=== PATIENT | male | born 1975 | race African-American/Black ===

== ENCOUNTER 2024-04-19 10:03 | Inpatient (IN) | payer OTHER ==
[2024-04-19] MEDS ORDERED: morphine SULFATE 4 MG/ML VIAL ONE ×3 (10:50→16:47)
[2024-04-19] MEDS ORDERED: ONDANSETRON 4 MG/2 ML VIAL ONE (10:50)
[2024-04-19 10:54] LABS: BASO % 0.3 % (0-2.0); HEMATOCRIT 35.9 % (35.4-49); HEMOGLOBIN 11.9 GM/dL (11.7-16.9); LYMPH % 11.1 % (8-40); MCH 29.8 pg (25.7-33.7); MCHC 33.2 g/dl (32.0-35.9); MEAN CELL VOLUME 89.8 fl (80-96); MEAN PLT VOLUME 7.7 fl (7.5-11.1); NEUT % 85.6 % (42.8-82.8); PLATELET COUNT 283 10^3/uL (134-434); RDW 15.9 % (11.9-15.9); WHITE BLOOD COUNT 6.6 K/mm3 (4.0-10.0)
[2024-04-19] MEDS: morphine CARPU-JECT 4 MG/1 ML DISP.SYRIN IVPUSH ONE ×2 (10:58→16:56)
[2024-04-19] MEDS: ONDANSETRON 4 MG/2 ML VIAL IVPUSH ONE (10:58)
[2024-04-19 11:13] LABS: CHLORIDE 103 mmol/L (98-107); SODIUM 126 mmol/L (136-145)
[2024-04-19 11:16] LABS: ALBUMIN 3.5 g/dl (3.4-5.0); BLOOD UREA NITROGEN 10.6 mg/dL (7-18); CALCIUM 8.7 mg/dL (8.5-10.1); CO2 27 mmol/L (21-32); GLUCOSE,RANDOM 124 mg/dL (74-106); MAGNESIUM 2.2 mg/dL (1.8-2.4)
[2024-04-19 11:19] LABS: CREATININE 1.1 mg/dL (0.55-1.3); PHOSPHOROUS 3.4 mg/dL (2.5-4.9)
[2024-04-19 11:21] LABS: TOT PROT 8.7 g/dl (6.4-8.2)
[2024-04-19 11:22] LABS: ALK PHOS 66 U/L (45-117)
[2024-04-19 11:30] LABS: ANION GAP -4 mmol/L (4-13); POTASSIUM > 10.0 mmol/L (3.5-5.1); SGOT/AST 139 U/L (15-37); SGPT/ALT 39 U/L (13-61)
[2024-04-19] MEDS: morphine CARPU-JECT 8 MG/1 ML DISP.SYRIN IVPUSH ONE (12:02)
[2024-04-19 12:19] LABS: ACTIVATED PTT 36.7 SECONDS (25.2-36.5); INR 0.96 (0.83-1.09)
[2024-04-19 12:31] LABS: CHLORIDE 107 mmol/L (98-107); POTASSIUM 4.8 mmol/L (3.5-5.1); SODIUM 140 mmol/L (136-145)
[2024-04-19 12:34] LABS: ALBUMIN 3.7 g/dl (3.4-5.0); ANION GAP 7 mmol/L (4-13); BLOOD UREA NITROGEN 10.2 mg/dL (7-18); CALCIUM 9.4 mg/dL (8.5-10.1); CO2 26 mmol/L (21-32); GLUCOSE,RANDOM 119 mg/dL (74-106)
[2024-04-19 12:37] LABS: SGPT/ALT 25 U/L (13-61)
[2024-04-19 12:38] LABS: SGOT/AST 28 U/L (15-37)
[2024-04-19 12:39] LABS: BILIRUBIN,TOTAL 0.5 mg/dL (0.2-1); TOT PROT 7.6 g/dl (6.4-8.2)
[2024-04-19 12:40] LABS: ALK PHOS 68 U/L (45-117)
[2024-04-19] MEDS ORDERED: ACETAMINOPHEN INJECTION 100 ML IVPB ONE (13:08)
[2024-04-19] MEDS: ACETAMINOPHEN 1000 MG/100 ML BAG IVPB ONE (13:15)
[2024-04-19] MEDS ORDERED: MORPHINE SULFATE 2 MG/ML SYRINGE ONE (16:47)
[2024-04-19] MEDS ORDERED: ACETAMINOPHEN 1000 MG/100 ML BAG IVPB PRN (18:03)
[2024-04-19] MEDS ORDERED: morphine SULFATE 4 MG/ML VIAL IVPUSH PRN (18:03)
[2024-04-19] MEDS ORDERED: ONDANSETRON 4 MG/2 ML VIAL IVPUSH PRN (19:49)
[2024-04-19 20:17] VITALS: RESP 18; BMI 44.1
[2024-04-19] MEDS: DEXTROSE 5%-0.45% SALINE 1,000 ML IV SCH (20:30)
[2024-04-20 08:21] LABS: POTASSIUM 3.5 mmol/L (3.5-5.1)
[2024-04-20 08:27] LABS: BASO % 0.4 % (0-2.0); EOS % 0.4 % (0-4.5); HEMATOCRIT 33.9 % (35.4-49); HEMOGLOBIN 11.6 GM/dL (11.7-16.9); LYMPH % 22.6 % (8-40); MCH 30.4 pg (25.7-33.7); MEAN CELL VOLUME 89.3 fl (80-96); MEAN PLT VOLUME 7.2 fl (7.5-11.1); NEUT % 66.6 % (42.8-82.8); PLATELET COUNT 240 10^3/uL (134-434); RDW 14.7 % (11.9-15.9); WHITE BLOOD COUNT 5.8 K/mm3 (4.0-10.0)
[2024-04-20 08:31] LABS: CALCIUM 8.7 mg/dL (8.5-10.1)
[2024-04-20 08:32] LABS: ALBUMIN 3.2 g/dl (3.4-5.0); BLOOD UREA NITROGEN 8.5 mg/dL (7-18)
[2024-04-20 08:35] LABS: CREATININE 0.9 mg/dL (0.55-1.3)
[2024-04-20 08:36] LABS: TOT PROT 6.9 g/dl (6.4-8.2)
[2024-04-20 08:44] LABS: MAGNESIUM 1.8 mg/dL (1.8-2.4)
[2024-04-20] MEDS: LEVOTHYROXINE SODIUM 100 MCG 5 ML VIAL IVPUSH SCH (09:16)
[2024-04-20 11:31] VITALS: BP 140/66; PULSE 84; TEMP 98
== END 2024-04-20 14:24 | disposition home or self-care (01) | DRG 254 ==
LOC: JER 10:03 → JERBED 17:15 → J8W 19:28
PROVIDERS: ADMIT Internal Medicine; ATTEND Internal Medicine
DX: K43.9 Ventral hernia without obstruction or gangrene (principal); E03.9 Hypothyroidism, unspecified
CPT/HCPCS: 36415; 74018-TC-FY; 74177-TC; 80053; 82550; 82553; 83690; 83735; 84100; 84439; 84443; 84484; 85025; 85610; 85730; 86850; 86900; 86901; 93005; 93010; 99285-25; J0131; Q9967

== ENCOUNTER 2024-04-21 10:07 | Inpatient (IN) | payer OTHER ==
[2024-04-21] MEDS ORDERED: ACETAMINOPHEN INJECTION 100 ML IVPB ONE (11:07)
[2024-04-21] MEDS ORDERED: morphine SULFATE 4 MG/ML VIAL ONE ×2 (11:07→20:50)
[2024-04-21] MEDS ORDERED: FAMOTIDINE 20 MG/50 ML IVPB 20 MG/50 ML MG IVPB ONE (11:08)
[2024-04-21] MEDS ORDERED: ONDANSETRON 4 MG/2 ML VIAL ONE (11:08)
[2024-04-21 11:09] LABS: BASO % 0.3 % (0-2.0); EOS % 0.1 % (0-4.5); HEMATOCRIT 36.9 % (35.4-49); HEMOGLOBIN 12.2 GM/dL (11.7-16.9); LYMPH % 7.8 % (8-40); MCH 29.5 pg (25.7-33.7); MEAN CELL VOLUME 89.3 fl (80-96); MEAN PLT VOLUME 7.3 fl (7.5-11.1); MONO % 5.5 % (3.8-10.2); NEUT % 86.3 % (42.8-82.8); PLATELET COUNT 248 10^3/uL (134-434); RBC 4.13 M/mm3 (4.00-5.60); RDW 14.5 % (11.9-15.9); WHITE BLOOD COUNT 11.3 K/mm3 (4.0-10.0)
[2024-04-21 11:19] LABS: INR 1.12 (0.83-1.09); PROTHROMBIN TIME (PATIENT) 12.8 SEC (9.7-13.0)
[2024-04-21] MEDS: ACETAMINOPHEN 1000 MG/100 ML BAG IVPB ONE (11:19)
[2024-04-21] MEDS: morphine CARPU-JECT 4 MG/1 ML DISP.SYRIN IVPUSH ONE ×2 (11:20→20:56)
[2024-04-21] MEDS: FAMOTIDINE 20 MG/50 ML IVPB 20 MG/50 ML MG IVPB SCH (11:20)
[2024-04-21] MEDS: ONDANSETRON 4 MG/2 ML VIAL IVPUSH ONE (11:20)
[2024-04-21] MEDS: SODIUM CHLORIDE 0.9% 500 ML INFUS.BAG IV ONE (11:20)
[2024-04-21] MEDS ORDERED: HYDROmorphone HCL CARPU-JECT 2 MG/1 ML DISP.SYRIN ONE (11:22)
[2024-04-21] MEDS: HYDROmorphone HCl 2 MG/ML VIAL IVPUSH ONE (11:29)
[2024-04-21 11:49] LABS: POTASSIUM 4.2 mmol/L (3.5-5.1)
[2024-04-21 11:52] LABS: ALBUMIN 3.6 g/dl (3.4-5.0); BLOOD UREA NITROGEN 9.1 mg/dL (7-18); CALCIUM 8.9 mg/dL (8.5-10.1)
[2024-04-21 11:55] LABS: CREATININE 1.1 mg/dL (0.55-1.3)
[2024-04-21 11:57] LABS: TOT PROT 7.4 g/dl (6.4-8.2)
[2024-04-21 12:13] LABS: MAGNESIUM 1.9 mg/dL (1.8-2.4)
[2024-04-21 13:18] LABS: PH,URINE 5.5 (5.0-8.0); URINE APPEARANCE CLEAR; URINE BILIRUBIN NEGATIVE (NEGATIVE); URINE COLOR YELLOW; URINE GLUCOSE (UA) NEGATIVE (NEGATIVE); URINE KETONE 2+ (NEGATIVE); URINE LEUK ESTERASE NEGATIVE (NEGATIVE); URINE NITRITE NEGATIVE (NEGATIVE); URINE PROTEIN NEGATIVE (NEGATIVE)
[2024-04-21] MEDS ORDERED: KETOROLAC TROMETHAMINE 15 MG/ML VIAL ONE (14:45)
[2024-04-21] MEDS: KETOROLAC TROMETHAMINE 15 MG/ML VIAL IVPUSH ONE (14:53)
[2024-04-21] MEDS ORDERED: ONDANSETRON 4 MG/2 ML VIAL IVPUSH PRN (21:54)
[2024-04-22] MEDS: ceFAZolin SODIUM 1 GM VIAL IVPB ONE
[2024-04-22] MEDS: DEXTROSE 5%-0.45% SALINE 1,000 ML IV SCH ×2 (01:33→22:20)
[2024-04-22] MEDS: ACETAMINOPHEN 1000 MG/100 ML BAG IVPB PRN (01:34)
[2024-04-22 03:07] VITALS: BMI 42.8
[2024-04-22] MEDS: PIPERACILLIN/TAZOB 3.375 GM 3.375 GM in DEXTROSE 5%-WATER - 50 ML IVPB SCH ×2 (03:07→11:54)
[2024-04-22 07:58] LABS: BASO % 0.2 % (0-2.0); HEMATOCRIT 34.3 % (35.4-49); HEMOGLOBIN 11.4 GM/dL (11.7-16.9); LYMPH % 7.7 % (8-40); MCH 29.6 pg (25.7-33.7); MCHC 33.1 g/dl (32.0-35.9); MEAN CELL VOLUME 89.2 fl (80-96); MEAN PLT VOLUME 7.6 fl (7.5-11.1); MONO % 9.6 % (3.8-10.2); NEUT % 82.5 % (42.8-82.8); PLATELET COUNT 236 10^3/uL (134-434); RBC 3.85 M/mm3 (4.00-5.60); RDW 14.5 % (11.9-15.9); WHITE BLOOD COUNT 12.1 K/mm3 (4.0-10.0)
[2024-04-22 08:06] LABS: POTASSIUM 3.8 mmol/L (3.5-5.1)
[2024-04-22 08:13] LABS: CALCIUM 8.1 mg/dL (8.5-10.1)
[2024-04-22 08:14] LABS: BLOOD UREA NITROGEN 9.2 mg/dL (7-18)
[2024-04-22 08:17] LABS: CREATININE 1.1 mg/dL (0.55-1.3)
[2024-04-22] MEDS ORDERED: BUPIVACAINE HCL/PF 0.25% (2.5MG/ML) 10 ML VIAL ONE (11:03)
[2024-04-22] MEDS ORDERED: HEPARIN NA (PORCINE) 5,000 UNITS/ML 1ML VIAL ONE (11:04)
[2024-04-22] MEDS: LEVOTHYROXINE SODIUM 100 MCG 5 ML VIAL IVPUSH SCH (11:54)
[2024-04-22] MEDS ORDERED: PROPOFOL 20 ML ONE ×2 (13:31→19:57)
[2024-04-22] MEDS ORDERED: MIDAZOLAM HCL 2 MG/2 ML SINGLE DOSE VIAL ONE (13:32)
[2024-04-22] MEDS ORDERED: SUCCINYLCHOLINE CHLORIDE 200 MG/10 ML SYRINGE ONE ×2 (13:32→20:06)
[2024-04-22] MEDS ORDERED: ROCURONIUM BROMIDE 50 MG/5 ML SYRINGE ONE (13:58)
[2024-04-22] MEDS ORDERED: DEXAMETHASONE SOD PHOSPHATE 4 MG/1 ML VIAL ONE (14:01)
[2024-04-22] MEDS ORDERED: ONDANSETRON 4 MG/2 ML VIAL ONE (14:01)
[2024-04-22] MEDS ORDERED: ACETAMINOPHEN INJECTION 100 ML IVPB ONE ×2 (14:07→21:02)
[2024-04-22] MEDS: BUPIVACAINE HCL/PF 0.25% (2.5MG/ML) 10 ML VIAL IJ ONE ×2 (14:14)
[2024-04-22] MEDS ORDERED: INDOCYANINE GREEN 25 MG/10 ML VIAL IVPUSH ONE (14:41)
[2024-04-22] MEDS ORDERED: ROCURONIUM BROMIDE 50 MG/5 ML VIAL ONE ×3 (15:03→19:43)
[2024-04-22] MEDS ORDERED: DEXTROSE 50%-WATER 25 GM/50 ML DISP.SYRIN ONE (16:06)
[2024-04-22] MEDS ORDERED: DEXMEDETOMIDINE HCL 200 MCG/2 ML IVPB ONE (16:11)
[2024-04-22] MEDS ORDERED: SUGAMMADEX SODIUM 200 MG/2 ML VIAL ONE ×2 (16:55→20:00)
[2024-04-22] MEDS ORDERED: KETOROLAC TROMETHAMINE 30 MG/1 ML VIAL ONE (18:45)
[2024-04-22] MEDS ORDERED: ONDANSETRON 4 MG/2 ML VIAL IVPUSH PRN ×2 (20:45→20:49)
[2024-04-22] MEDS: ACETAMINOPHEN 1000 MG/100 ML BAG IVPB ONE ×2 (21:00→22:37)
[2024-04-22] MEDS ORDERED: HYDROmorphone HCL CARPU-JECT 2 MG/1 ML DISP.SYRIN ONE (21:48)
[2024-04-22] MEDS: HYDROmorphone HCl 2 MG/ML VIAL IVPB PRN (21:55)
[2024-04-22] MEDS: FAMOTIDINE 20 MG/50 ML IVPB 20 MG/50 ML MG IVPB SCH (23:24)
[2024-04-23] MEDS: PIPERACILLIN/TAZOB 3.375 GM 3.375 GM in DEXTROSE 5%-WATER - 50 ML IVPB SCH ×2 (00:15→01:31)
[2024-04-23] MEDS: LACTATED RINGERS SOLUTION 1,000 ML IV SCH (00:15)
[2024-04-23] MEDS: oxyCODONE HCL 5 MG TABLET PO PRN (02:02)
[2024-04-23 09:44] LABS: BASO % 0.1 % (0-2.0); HEMATOCRIT 34.1 % (35.4-49); HEMOGLOBIN 11.1 GM/dL (11.7-16.9); LYMPH % 6.4 % (8-40); MCH 29.5 pg (25.7-33.7); MCHC 32.4 g/dl (32.0-35.9); MEAN PLT VOLUME 7.5 fl (7.5-11.1); MONO % 7.3 % (3.8-10.2); NEUT % 86.2 % (42.8-82.8); PLATELET COUNT 257 10^3/uL (134-434); RBC 3.75 M/mm3 (4.00-5.60); RDW 14.5 % (11.9-15.9); WHITE BLOOD COUNT 13.6 K/mm3 (4.0-10.0)
[2024-04-23 10:05] LABS: POTASSIUM 3.6 mmol/L (3.5-5.1)
[2024-04-23 10:08] LABS: BLOOD UREA NITROGEN 8.6 mg/dL (7-18); CALCIUM 8.3 mg/dL (8.5-10.1)
[2024-04-23 10:12] LABS: CREATININE 1.3 mg/dL (0.55-1.3)
[2024-04-23] MEDS: LEVOTHYROXINE SODIUM 100 MCG 5 ML VIAL IVPUSH SCH (10:12)
[2024-04-23 10:13] LABS: BILIRUBIN,TOTAL 0.9 mg/dL (0.2-1)
[2024-04-23] MEDS ORDERED: KETOROLAC TROMETHAMINE 15 MG/ML VIAL IVPUSH PRN (12:45)
[2024-04-23] MEDS: KETOROLAC TROMETHAMINE 15 MG/ML VIAL IVPUSH SCH (13:59)
[2024-04-23 15:39] VITALS: RESP 18
[2024-04-23] MEDS: ACETAMINOPHEN 325 MG TABLET (FP) PO SCH (22:23)
[2024-04-24] MEDS: LEVOTHYROXINE NA 150 MCG TABLET PO SCH (07:05)
[2024-04-24 09:19] LABS: BASO % 0.1 % (0-2.0); EOS % 0.7 % (0-4.5); HEMATOCRIT 31.2 % (35.4-49); HEMOGLOBIN 10.5 GM/dL (11.7-16.9); LYMPH % 13.9 % (8-40); MCH 29.7 pg (25.7-33.7); MCHC 33.6 g/dl (32.0-35.9); MEAN CELL VOLUME 88.4 fl (80-96); MEAN PLT VOLUME 7.9 fl (7.5-11.1); MONO % 8.9 % (3.8-10.2); NEUT % 76.4 % (42.8-82.8); PLATELET COUNT 232 10^3/uL (134-434); RBC 3.53 M/mm3 (4.00-5.60); RDW 14.5 % (11.9-15.9); WHITE BLOOD COUNT 7.8 K/mm3 (4.0-10.0)
[2024-04-24 09:30] LABS: POTASSIUM 3.6 mmol/L (3.5-5.1)
[2024-04-24 09:34] LABS: CALCIUM 7.5 mg/dL (8.5-10.1)
[2024-04-24 09:35] LABS: BLOOD UREA NITROGEN 5.6 mg/dL (7-18)
[2024-04-24 09:37] LABS: CREATININE 0.9 mg/dL (0.55-1.3)
[2024-04-24 09:39] LABS: BILIRUBIN,TOTAL 0.5 mg/dL (0.2-1); TOT PROT 6.2 g/dl (6.4-8.2)
[2024-04-24 09:51] LABS: ALBUMIN 2.4 g/dl (3.4-5.0)
[2024-04-25 07:58] LABS: BASO % 0.4 % (0-2.0); EOS % 1.3 % (0-4.5); HEMATOCRIT 30.1 % (35.4-49); HEMOGLOBIN 9.9 GM/dL (11.7-16.9); LYMPH % 21.2 % (8-40); MCH 29.3 pg (25.7-33.7); MCHC 32.9 g/dl (32.0-35.9); MEAN CELL VOLUME 88.9 fl (80-96); MEAN PLT VOLUME 7.3 fl (7.5-11.1); MONO % 9.9 % (3.8-10.2); NEUT % 67.2 % (42.8-82.8); PLATELET COUNT 253 10^3/uL (134-434); RBC 3.38 M/mm3 (4.00-5.60); RDW 14.8 % (11.9-15.9); WHITE BLOOD COUNT 6.3 K/mm3 (4.0-10.0)
[2024-04-25 08:13] LABS: POTASSIUM 3.5 mmol/L (3.5-5.1)
[2024-04-25 08:22] LABS: ALBUMIN 2.3 g/dl (3.4-5.0); BLOOD UREA NITROGEN 3.4 mg/dL (7-18)
[2024-04-25 08:25] LABS: CREATININE 0.8 mg/dL (0.55-1.3)
[2024-04-25 08:27] LABS: BILIRUBIN,TOTAL 0.6 mg/dL (0.2-1); TOT PROT 5.8 g/dl (6.4-8.2)
[2024-04-25] MEDS: ENOXAPARIN NA (PORCINE) 40 MG/0.4 ML DISP.SYRIN SQ SCH (09:59)
[2024-04-25 12:26] VITALS: BP 144/85; PULSE 92; TEMP 98.3
== END 2024-04-25 14:00 | disposition home or self-care (01) | DRG 227 ==
LOC: JER 10:07 → JERBED 20:22 → J8W 04-22
PROVIDERS: ADMIT Internal Medicine; ATTEND Nurse Practitioner Family
PROC: 8E0W4CZ Robotic Assisted Procedure of Trunk Region, Percutaneous Endoscopic Approach (ICD-10-PCS; 2024-04-22)
PROC: 0WQF4ZZ Repair Abdominal Wall, Percutaneous Endoscopic Approach (ICD-10-PCS; 2024-04-22)
PROC: 0W9G40Z Drainage of Peritoneal Cavity with Drainage Device, Percutaneous Endoscopic Approach (ICD-10-PCS; 2024-04-22)
PROC: 0FT44ZZ Resection of Gallbladder, Percutaneous Endoscopic Approach (ICD-10-PCS; principal; 2024-04-22 10:30)
DX: K43.0 Incisional hernia with obstruction, without gangrene (principal); K56.600 Partial intestinal obstruction, unspecified as to cause; E89.0 Postprocedural hypothyroidism; K81.0 Acute cholecystitis; K82.A1 Gangrene of gallbladder in cholecystitis; K56.51 Intestinal adhesions [bands], with partial obstruction; K65.4 Sclerosing mesenteritis; K65.1 Peritoneal abscess; E66.01 Morbid (severe) obesity due to excess calories; Z68.41 Body mass index [BMI] 40.0-44.9, adult
CPT/HCPCS: 0241U-QW; 36415; 71045-TC-FY; 74018-TC-FY; 74177-TC; 78226-TC; 80048; 80053; 81003; 83605; 83735; 84443; 84484; 85025; 85610; 85730; 86850; 86900; 86901; 87040; 87086; 88304-TC; 93005; 93010; 94760; 99285-25; A9537; J0131; J1644; Q9967

== ENCOUNTER 2024-06-06 08:20 | Inpatient (IN) | payer OTHER ==
[2024-06-06 08:35] VITALS: BMI 41.3
[2024-06-06] MEDS ORDERED: ACETAMINOPHEN INJECTION 100 ML IVPB ONE (09:21)
[2024-06-06] MEDS ORDERED: PIPERACILLIN/TAZOB 4.5 GM 4.5 GM/100 ML BAG IVPB ONE (09:21)
[2024-06-06] MEDS: ACETAMINOPHEN 1000 MG/100 ML BAG IVPB ONE (10:21)
[2024-06-06] MEDS: PIPERACILLIN/TAZOB 4.5 GM 4.5 GM in DEXTROSE 5%-WATER 100 ML IVPB ONE (10:21)
[2024-06-06 10:27] LABS: BASO % 0.7 % (0-2.0); EOS % 0.5 % (0-4.5); HEMATOCRIT 33.3 % (35.4-49); LYMPH % 18.4 % (8-40); MCH 27.4 pg (25.7-33.7); MCHC 32.9 g/dl (32.0-35.9); MEAN CELL VOLUME 83.4 fl (80-96); MEAN PLT VOLUME 6.7 fl (7.5-11.1); MONO % 8.6 % (3.8-10.2); NEUT % 71.8 % (42.8-82.8); PLATELET COUNT 342 10^3/uL (134-434); RDW 18.7 % (11.9-15.9); WHITE BLOOD COUNT 8.1 K/mm3 (4.0-10.0)
[2024-06-06 10:32] LABS: INR 1.19 (0.83-1.09); PROTHROMBIN TIME (PATIENT) 13.4 SEC (9.7-13.0)
[2024-06-06 10:49] LABS: POTASSIUM 4.5 mmol/L (3.5-5.1)
[2024-06-06 10:51] LABS: BLOOD UREA NITROGEN 5.7 mg/dL (7-18); CALCIUM 9.2 mg/dL (8.5-10.1)
[2024-06-06 10:54] LABS: CREATININE 0.9 mg/dL (0.55-1.3)
[2024-06-06 10:56] LABS: BILIRUBIN,TOTAL 0.5 mg/dL (0.2-1)
[2024-06-06] MEDS ORDERED: LIDOCAINE 1%/EPI 1:100000 (20 ML MULTI DOSE VIAL) ONE (15:01)
[2024-06-06] MEDS: LIDOCAINE HCL 1% EPINEPHRINE 1:200,000 30 ML VIAL (PF) IJ ONE (15:13)
[2024-06-06] MEDS ORDERED: HYDROmorphone HCL CARPU-JECT 2 MG/1 ML DISP.SYRIN ONE (15:48)
[2024-06-06] MEDS: HYDROmorphone HCL CARPU-JECT 2 MG/1 ML DISP.SYRIN IVPUSH ONE (16:03)
[2024-06-06] MEDS: ACETAMINOPHEN 325 MG TABLET (FP) PO SCH (18:07)
[2024-06-07] MEDS: PIPERACILLIN/TAZOB 3.375 GM 3.375 GM in DEXTROSE 5%-WATER - 50 ML IVPB SCH ×2 (01:03→17:36)
[2024-06-07] MEDS: LEVOTHYROXINE 100 MCG, LEVOTHYROXINE 75 MCG PO SCH (06:00)
[2024-06-07] MEDS: oxyCODONE HCL 5 MG TABLET PO PRN (08:53)
[2024-06-07] MEDS ORDERED: PATIENT'S OWN MEDICATION (NON-FORMULARY) (Levothyroxine [Synthroid -] 175 MCG Tablet) PO SCH (10:00)
[2024-06-07] MEDS: VANCOMYCIN PREMIX 1.5 GM 1,500 MG/300 ML BAG IVPB SCH (16:17)
[2024-06-08] MEDS: LACTOBACILLUS ACIDOPHILUS 1 TABLET PO SCH (15:42)
[2024-06-08] MEDS: CEFTRIAXONE 2 GM in DEXTROSE 5%-WATER 100 ML IVPB SCH (15:42)
[2024-06-08] MEDS: CLINDAMYCIN 900 MG PREMIX IVPB 900 MG/50 ML BAG IVPB SCH (18:46)
[2024-06-09 10:47] LABS: HEMATOCRIT 38.3 % (35.4-49); HEMOGLOBIN 12.5 GM/dL (11.7-16.9); MCH 27.1 pg (25.7-33.7); MCHC 32.7 g/dl (32.0-35.9); MEAN CELL VOLUME 82.8 fl (80-96); MEAN PLT VOLUME 6.8 fl (7.5-11.1); PLATELET COUNT 461 10^3/uL (134-434); RBC 4.62 M/mm3 (4.00-5.60); RDW 19.2 % (11.9-15.9); WHITE BLOOD COUNT 4.3 K/mm3 (4.0-10.0)
[2024-06-09 11:04] LABS: POTASSIUM 4.3 mmol/L (3.5-5.1)
[2024-06-09 11:12] LABS: BLOOD UREA NITROGEN 7.9 mg/dL (7-18)
[2024-06-09 11:13] LABS: BILIRUBIN,TOTAL 0.2 mg/dL (0.2-1)
[2024-06-09 11:14] LABS: ANISOCYTOSIS 1+; MACROCYTOSIS 0
[2024-06-09 11:15] LABS: ALBUMIN 3.3 g/dl (3.4-5.0); CREATININE 1.1 mg/dL (0.55-1.3)
[2024-06-09] MEDS ORDERED: MIDAZOLAM HCL 2 MG/2 ML SINGLE DOSE VIAL ONE (13:10)
[2024-06-09] MEDS ORDERED: FENTANYL CITRATE/PF 50 MCG/ML VIAL ONE (13:10)
[2024-06-09] MEDS: FENTANYL CITRATE/PF 50 MCG/ML VIAL IVPUSH ONE ×2 (13:40→14:07)
[2024-06-09] MEDS: MIDAZOLAM HCL 2 MG/2 ML SINGLE DOSE VIAL IVPUSH ONE ×2 (13:40→14:07)
[2024-06-09] MEDS: SENNOSIDES 8.6MG TABLET (FP) PO SCH (22:08)
[2024-06-10] MEDS ORDERED: KETOROLAC TROMETHAMINE 15 MG/ML VIAL IVPUSH PRN (15:38)
[2024-06-11 09:29] LABS: BASO % 0.4 % (0-2.0); HEMATOCRIT 35.1 % (35.4-49); HEMOGLOBIN 11.4 GM/dL (11.7-16.9); LYMPH % 33.8 % (8-40); MCH 27.1 pg (25.7-33.7); MCHC 32.5 g/dl (32.0-35.9); MEAN CELL VOLUME 83.4 fl (80-96); MEAN PLT VOLUME 6.6 fl (7.5-11.1); MONO % 8.6 % (3.8-10.2); NEUT % 56.2 % (42.8-82.8); PLATELET COUNT 462 10^3/uL (134-434); RBC 4.21 M/mm3 (4.00-5.60); RDW 19.5 % (11.9-15.9); WHITE BLOOD COUNT 5.5 K/mm3 (4.0-10.0)
[2024-06-11 09:40] LABS: POTASSIUM 4.6 mmol/L (3.5-5.1)
[2024-06-11 09:44] LABS: ALBUMIN 3.2 g/dl (3.4-5.0)
[2024-06-11 09:45] LABS: BLOOD UREA NITROGEN 9.5 mg/dL (7-18); CALCIUM 9.1 mg/dL (8.5-10.1)
[2024-06-11 09:49] LABS: CREATININE 1.1 mg/dL (0.55-1.3)
[2024-06-11 09:51] LABS: BILIRUBIN,TOTAL 0.6 mg/dL (0.2-1); TOT PROT 8.2 g/dl (6.4-8.2)
[2024-06-11] MEDS: PANTOPRAZOLE 40 MG TABLET PO SCH (14:56)
[2024-06-11] MEDS: CLINDAMYCIN HCL 300 MG CAPSULE PO SCH (18:23)
[2024-06-12] MEDS: CLINDAMYCIN HCL 150 MG CAPSULE (FP) PO SCH (00:04)
[2024-06-13] MEDS: ACETAMINOPHEN 500 MG TABLET (FP) PO SCH (12:31)
[2024-06-13] MEDS: IBUPROFEN 600 MG TABLET (FP) PO SCH (12:34)
[2024-06-13 18:43] VITALS: RESP 18
[2024-06-14 08:31] LABS: BASO % 1.1 % (0-2.0); EOS % 0.7 % (0-4.5); HEMATOCRIT 37.3 % (35.4-49); HEMOGLOBIN 12.2 GM/dL (11.7-16.9); LYMPH % 35.4 % (8-40); MCH 27.1 pg (25.7-33.7); MCHC 32.6 g/dl (32.0-35.9); MEAN PLT VOLUME 6.7 fl (7.5-11.1); NEUT % 54.8 % (42.8-82.8); PLATELET COUNT 454 10^3/uL (134-434); RDW 19.8 % (11.9-15.9); WHITE BLOOD COUNT 6.2 K/mm3 (4.0-10.0)
[2024-06-14 08:50] LABS: POTASSIUM 4.6 mmol/L (3.5-5.1)
[2024-06-14 08:53] LABS: ALBUMIN 3.7 g/dl (3.4-5.0); CALCIUM 9.7 mg/dL (8.5-10.1)
[2024-06-14 08:54] LABS: BLOOD UREA NITROGEN 19.8 mg/dL (7-18)
[2024-06-14 08:57] LABS: CREATININE 1.2 mg/dL (0.55-1.3)
[2024-06-14 08:58] LABS: BILIRUBIN,TOTAL 0.6 mg/dL (0.2-1); TOT PROT 9.2 g/dl (6.4-8.2)
[2024-06-15] MEDS: oxyCODONE HCL 5 MG TABLET PO PRN (00:25)
[2024-06-16 14:55] VITALS: BP 117/76; PULSE 88; TEMP 98.8
== END 2024-06-16 15:21 | disposition home or self-care (01) | DRG 951 ==
LOC: JER 08:20 → JERBED 16:14 → J5S 17:57
PROVIDERS: ADMIT Internal Medicine; ATTEND Internal Medicine
PROC: 0J980ZX Drainage of Abdomen Subcutaneous Tissue and Fascia, Open Approach, Diagnostic (ICD-10-PCS; 2024-06-06)
PROC: 0F9430Z Drainage of Gallbladder with Drainage Device, Percutaneous Approach (ICD-10-PCS; principal; 2024-06-09)
DX: L76.82 Other postprocedural complications of skin and subcutaneous tissue (principal); K65.1 Peritoneal abscess; E66.01 Morbid (severe) obesity due to excess calories; L02.211 Cutaneous abscess of abdominal wall; Z68.41 Body mass index [BMI] 40.0-44.9, adult; A49.02 Methicillin resistant Staphylococcus aureus infection, unspecified site; R10.9 Unspecified abdominal pain; R14.0 Abdominal distension (gaseous); Y83.9 Surgical procedure, unspecified as the cause of abnormal reaction of the patient, or of later complication, without mention of misadventure at the time of the procedure; E03.9 Hypothyroidism, unspecified
CPT/HCPCS: 36415; 49406; 74176-TC; 74177-TC; 80053; 83605; 85025; 85610; 86850; 86900; 86901; 87040; 87070; 87075; 87102; 87116; 87186; 87205; 87206; 87210; 94761; 99285-25; J0131; Q9967